=== PATIENT | female | born 2000 ===

== ENCOUNTER 2020-07-31 19:08 | Inpatient (IN) | payer OTHER ==
[~2020-07-31] VITALS: Ht 154.9 cm; Wt 63.5 kg
[2020-07-31] MEDS ORDERED: PRENATAL TABLE1 EAC1 PO (20:47)
== END 2020-08-04 10:42 | disposition home or self-care (01) | DRG 833 ==
LOC: LDR 19:08
PROVIDERS: ADMIT Obstetrics & Gynecology; ATTEND Obstetrics & Gynecology
PROC: 4A1HXFZ Monitoring of Products of Conception, Cardiac Rhythm, External Approach (ICD-10-PCS; principal; 2020-07-31)
PROC: BY4FZZZ Ultrasonography of Third Trimester, Single Fetus (ICD-10-PCS; 2020-08-03)
DX: O36.5930 Maternal care for other known or suspected poor fetal growth, third trimester, not applicable or unspecified (principal); Z3A.34 34 weeks gestation of pregnancy; Z20.822 Contact with and (suspected) exposure to COVID-19